=== PATIENT | female | born 1990 | race American Indian/Alaskan Native ===

== ENCOUNTER 2019-10-26 14:58 | Emergency (ER) | payer OTHER ==
--- NOTE | 2019-10-26 15:13 | Event Note ---
ED Screening Note Date of service: 10/26/19 Time: 15:08 ED Screening Note: Pain from the back of head to left arm that is numb in certain area time 3 day got worst and decided to comes in to be evaluated. [facility] 09/21/2019. No trauma This initial assessment/diagnostic orders/clinical plan/treatment(s) is/are subject to change based on patients health status, clinical progression and re- assessment by fellow clinical providers in the ED. Further treatment and workup at subsequent clinical providers discretion. Patient/guardian urged not to elope from the ED as their condition may be serious if not clinically assessed and managed. Initial orders include:
[2019-10-26 16:46] LABS: Basophils # (Auto) 0.1 K/mm3 (0.0-0.1); Basophils % (Auto) 0.8 % (0.0-1.8); Eosinophils % (Auto) 0.3 % (0.0-4.3); Hematocrit 40.5 % (30.3-42.9); Hemoglobin 13.7 gm/dl (10.1-14.3); Lymphocytes # (Auto) 1.4 K/mm3 (1.2-5.4); Lymphocytes % (Auto) 15.6 % (13.4-35.0); Mean Corpuscular HGB Conc 34 % (30-34); Mean Corpuscular Volume 93 fl (79-97); Monocytes # (Auto) 0.8 K/mm3 (0.0-0.8); Monocytes % (Auto) 9.1 % (0.0-7.3); Platelet Count 407 K/mm3 (140-440); Red Blood Count 4.38 M/mm3 (3.65-5.03); Red Cell Distribution Width 14.5 % (13.2-15.2)
[2019-10-26] MEDS ORDERED: KETOROLAC 60 MG/2 ML INJ IM ONE (17:06)
--- NOTE | 2019-10-26 17:12 | Emergency Department Report ---
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 Patient states she woke up with this pain 3 days ago.) Associated Symptoms: headache (The base of the posterior head), numbness (Patient has some numbness radiating into the left hand with a shocking pain). denies: fever, tingling, weakness, vertigo, difficulty walking, swollen glands - Related Data Previous Rx's Medication Instructions Recorded Last Taken Type Ketorolac [Toradol] 10 mg PO Q6H PRN #12 tablet 10/26/19 Unknown Rx methOCARBAMOL [Robaxin TAB] 500 mg PO Q6H PRN #14 tablet 10/26/19 Unknown Rx traMADoL [Ultram] 50 mg PO Q6HR PRN #12 tablet 10/26/19 Unknown Rx Allergies Allergy/AdvReac Type Severity Reaction Status Date / Time No Known Allergies Allergy Unverified 10/26/19 15:11 ED Review of Systems ROS: Stated complaint: MUSCLE TIGHTNESS/LEFT SIDE NUMBNESS Other details as noted in HPI Comment: All other systems reviewed and negative ED Past Medical Hx - Past Medical History Previous Medical History?: No - Surgical History Past Surgical History?: No - Social History Smoking Status: Never Smoker Substance Use Type: None - Medications Home Medications: Home Medications Medication Instructions Recorded Confirmed Last Taken Type Ketorolac [Toradol] 10 mg PO Q6H PRN #12 tablet 10/26/19 Unknown Rx methOCARBAMOL [Robaxin TAB] 500 mg PO Q6H PRN #14 tablet 10/26/19 Unknown Rx traMADoL [Ultram] 50 mg PO Q6HR PRN #12 tablet 10/26/19 Unknown Rx ED Physical Exam - General Limitations: No Limitations General appearance: alert, in no apparent distress - Head Head exam: Present: atraumatic, normocephalic - Eye Eye exam: Present: normal appearance, PERRL - ENT ENT exam: Present: mucous membranes moist - Neck Neck exam: Present: normal inspection, tenderness (Left side). Absent: meningismus, full ROM - Respiratory Respiratory exam: Present: normal lung sounds bilaterally. Absent: respiratory distress - Cardiovascular Cardiovascular Exam: Present: regular rate, normal rhythm. Absent: systolic murmur, diastolic murmur, rubs, gallop - GI/Abdominal GI/Abdominal exam: Absent: distended - Extremities Exam Extremities exam: Present: normal inspection - Back Exam Back exam: Present: normal inspection - Neurological Exam Neurological exam: Present: alert, oriented X3 - Psychiatric Psychiatric exam: Present: normal affect, normal mood - Skin Skin exam: Present: warm, dry, intact, normal color. Absent: rash ED Course Vital Signs 10/26/19 10/26/19 10/26/19 15:06 15:09 16:51 Temperature 98.0 F 98.0 F Pulse Rate 104 H 107 H Respiratory 18 18 Rate Blood Pressure 165/116 165/116 171/116 O2 Sat by Pulse 97 98 Oximetry 10/26/19 17:00 Temperature Pulse Rate Respiratory Rate Blood Pressure 178/128 O2 Sat by Pulse 99 Oximetry ED Medical Decision Making - Lab Data Result diagrams: 10/26/19 16:34 - Medical Decision Making CBC showed no evidence of elevated white count. Patient is afebrile. Meningi tis is very unlikely. Patient has a radiating pain into the left upper extremity and the patient likely has a cervical radiculopathy. Patient be given orthopedics for follow-up Patient has no history of hypertension and her elevated blood pressure likely secondary to pain. Patient urged to follow-up with primary care after pain is controlled for recheck of her blood pressure. Critical care attestation.: If time is entered above; I have spent that time in minutes in the direct care of this critically ill patient, excluding procedure time. ED Disposition Clinical Impression: Cervical radiculopathy Disposition: [id number] TO HOME OR SELFCARE Is pt being admited?: No Does the pt Need Aspirin: No Condition: Stable Instructions: Cervical Radiculopathy (ED) Additional Instructions: Your blood pressure likely was elevated secondary to pain. Because you do not have a history of hypertension no medication will be started at this time. Please have your blood pressure rechecked with your primary care urgent care and week. Referrals: AMANDA LÓPEZ MD [Staff Physician] - 3-5 Days Time of Disposition: 17:11
[2019-10-26 17:38] VITALS: BP 170/122
== END 2019-10-26 18:36 | disposition home or self-care (01) ==
LOC: ED 14:58
DX: M54.12 Radiculopathy, cervical region (principal); Z79.899 Other long term (current) drug therapy
CPT/HCPCS: 36415; 85025; 96372; 99283; J1885